=== PATIENT | female | born 1995 | race Two or more races ===

== ENCOUNTER 2024-04-20 20:35 | Emergency (ER) | payer BC, SELFPAY ==
[2024-04-20 20:35] VITALS: BMI 48.9
[2024-04-20 20:56] VITALS: BP 160/99; PULSE 100; RESP 20; TEMP 37.6; O2SAT 100
--- NOTE | 2024-04-20 21:11 | PD.EDANIML ---
ED Animal Bite RME/HPI General Chief Complaint: Animal Bite Stated Complaint: DOG BITE TO RIGHT ABD AREA Time Seen by Provider: 04/20/24 21:07 Arrival date/time: 04/20/24 20:35 29-year-old female reports with complaints of a dog bite to the right hip. Patient states that she does not know the dog but was advised by the dog's human resources services specialist that the puppy had not had vaccinations as of yet. Patient states that she is unaware or unsure of her last tetanus update she denies any fever chills or discharge from wound. 2 cm superficial abrasion to right hip Limitations: no limitations Related Data Home Medications ?Medication ?Instructions ?Recorded ?Confirmed sulfamethoxazole 800 1 tab PO BID 05/30/20 05/30/20 mg-trimethoprim 160 mg tablet Allergies Allergy/AdvReac Type Severity Reaction Status Date / Time No Known Allergies Allergy Verified 04/20/24 20:37 Review of Systems Constitutional Constitutional: Denies chills, Denies fever(s) and Denies headache(s) ENT Ears, Nose, Mouth, and Throat: Denies dizziness and Denies headache(s) Musculoskeletal Musculoskeletal: Denies arthralgias and Denies myalgias Integumentary/Breasts Skin/Breast: Reports unusual bruising and Reports wounds Neurologic Neurologic: Denies dizziness and Denies headache(s) Hematologic/Lymphatic Hematologic/Lymphatic: Denies easy bleeding and Denies easy bruising Past Medical History Past Medical History NEUROLOGIC: Negative Neurological Disorders or Seizures CARDIAC: Positive Cardiac Disorders and Heart Murmur; Negative Congestive Heart Failure, Edema, Cellulitis or Varicose Veins RESPIRATORY: Negative Chronic Obstructive Pulmonary Disease (COPD), Asthma, Tuberculosis, Pulmonary Edema or Sleep Apnea GASTROINTESTINAL: Negative Gastrointestinal Disorders or Hepatitis GENITOURINARY: Positive Genitourinary Disorders (UMBILICAL HERNIA REPAIR FOR THIS PROC) and Inguinal Hernia; Negative Renal Disease REPRODUCTIVE: Negative Pelvic Inflammatory Disease or Previous Pregnancies MUSCULOSKELETAL: Negative Musculoskeletal Disorders ENDOCRINE: Positive Endocrine Disorders (PREDIABETES NO MEDS); Negative Diabetes Mellitus Type 1 or Diabetes Mellitus Type 2 HEMATOLOGIC: Negative Sickle Cell Disease OTHER HISTORY: Positive Chicken Pox; Negative Hospitalization, Autoimmune Disease, Shingles, Falls, Blood Transfusions, Blood Transfusion Reaction, Anesthesia Reactions, Chemotherapy, Radiation Therapy, MRSA, Measles, Mumps or Cancer Family History FAMILY HISTORY: Positive Family Psychiatric Problems (SISTER (DEPRESSION,ANXIETY)), Family Cardiac Disorders (MOTHER (HTN)) and Family Surgery (MOTHER,SISTER); Negative Family Respiratory Disorders, Family Gastrointestinal Problems, Family Cancer or Family Anesthesia Reaction Surgical History SURGICAL: Negative Pacemaker Social History SMOKING STATUS: Never smoker ED Exam General Limitations: Present no limitations General appearance: Present alert and in no apparent distress Abdominal Exam Abdominal exam: Present soft and normal bowel sounds Expanded Lower Extremity Exam Hip/Pelvis exam: Present full ROM, tenderness and other (2 cm superficial abrasion to right hip no discharge); Absent swelling or ecchymosis Upper leg exam: Present normal inspection and full ROM Knee exam: Present normal inspection and full ROM Back Exam Back exam: Present normal inspection and full ROM Neurological Exam Neurological exam: Present alert, oriented X3 and CN II-XII intact Psychiatric Psychiatric exam: Present normal affect and normal mood Skin Skin exam: Present warm, dry, intact and normal color Course Quality Measures none Orders Category Date Time Status Wound Care NOW Care 04/20/24 21:09 Active Tet,Diphth,Pertuss(Acell)-Tdap [Boostrix Vacc] Med 04/20/24 21:09 Discontinued 0.5 ml IMI .ONCE ONE Vital Signs Vital signs: Vital Signs Temperature 99.7 F 04/20/24 20:56 Pulse Rate 100 04/20/24 20:56 Respiratory Rate 20 04/20/24 20:56 Blood Pressure 160/99 H 04/20/24 20:56 Pulse Oximetry (%) 100 04/20/24 20:56 Oxygen Delivery Method Room Air 04/20/24 20:56 Animal Bite Patient data External records reviewed:: None Clinical information provided by:: patient Social determinants that could affect healthcare access:: none Patient has the following chronic illnesses:: none How is presenting disease/condition affected by chronic disease/condition?: no chronic disease Evaluation data The following diagnostics were reviewed and interpreted by me:: other (specify) (none) Lab and/or radiology exams considered but not ordered:: none Interpretation Summary: n/a Medications / Prescriptions Medications or Prescriptions considered but not ordered:: none Medication administrations:: Medication Administration History Discontinued Medications Diphtheria/Tetanus/Acell Pertussis (Diphth,Pertuss(Acell),Tet Vac 0.5 Ml Vial) 0.5 ml IMi .ONCE ONE Stop: 04/20/24 21:10 as above Consultations Consultation(s) initiated? (list below): No Diagnosis Most likely diagnosis given after review of the tests above:: Animal bite Admission Indicated Admission indicated?: not indicated Admission Request Was there a request for admission?: No Disposition Plan Disposition Plan: Discharge Discharge Attestation Discharge Attestation: The patient and all family members were given an opportunity to ask questions and understood the discharge instructions. Discharge instructions specifically effects, indications for sooner follow up or return to the emergency department, and the expected course of current diagnosis. Patient condition: Stable Discharge Plan Plan Patient Disposition: HOME (Self Care) Prescriptions/Referrals Prescriptions/Med Rec: No Action sulfamethoxazole-trimethoprim 800-160 mg Tablet 1 tab PO BID Problem List Clinical Impression: Dog bite Patient/Caregiver Discharge Instructions Discharge Activity: activity as tolerated Education Materials: ED Dog Bite Additional Instructions: Keep the area clean with soap and water dry and cover with a dry bandage follow-up your primary care provider in 3 days for wound check. Print Language: Nepali Stand Alone Forms: Whit Award Info., Patient Portal Info Letter Vaccines Vaccines Given During Stay: TDaP
[2024-04-20] MEDS: DIPHTH,PERTUSS(ACELL),TET VAC 0.5 ML VIAL IMi (21:17)
== END 2024-04-20 21:26 | disposition home or self-care (01) ==
PROVIDERS: Emergency Provider Emergency Medicine; PCP Physician Assistant
DX: S70.211A Abrasion, right hip, initial encounter (principal); W54.0XXA Bitten by dog, initial encounter; Z23 Encounter for immunization
CPT/HCPCS: 90471; 90715; 99282